=== PATIENT | female | born 2005 | race Hispanic/Latino ===

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

== ENCOUNTER 2024-08-22 14:54 | Outpatient (CLI) | payer OTHER | END 2024-08-22 14:55 | disposition home or self-care (01) | LOC: BICULT 14:54 | PROVIDERS: ATTEND Family Medicine | DX: R80.9 Proteinuria, unspecified (principal) | CPT/HCPCS: 76770 ==

== ENCOUNTER 2024-11-04 15:38 | Outpatient (CLI) | payer OTHER | END 2024-11-04 15:39 | disposition home or self-care (01) | LOC: ULT 15:38 | PROVIDERS: ATTEND Advanced Practice Midwife | DX: R22.31 Localized swelling, mass and lump, right upper limb (principal) | CPT/HCPCS: 76999 ==